=== PATIENT | male | born 1965 | race Caucasian/White ===

== ENCOUNTER → 2016-09-12 14:10 | Day surgery (SDC) | payer OTHER ==
[~2016-09-12 14:10] MED LIST: Bupivacaine 0.5% SDV PF* 30 ML VIAL ONE; Bupivacaine 0.5%* 50 ML VIAL ONE
[2016-09-12 17:28] VITALS: BP 170/87
--- NOTE | 2016-09-18 01:30 | OP ---
DATE OF OPERATION: 09/12/16 - [facility] DATE OF : 61 SURGEON: Jayant Salgado MD BOMBSIGHT SPECIALIST: DANAE Peguero ANESTHESIOLOGIST: None. ANESTHESIA: Local only via digital block with 0.25% Marcaine without epinephrine. PRE-OP DIAGNOSIS: Left middle finger tip mass. POST-OP DIAGNOSIS: Left middle finger tip mass. OPERATIVE PROCEDURE: Excision of left middle finger tip mass. ESTIMATED BLOOD LOSS: 2 mL. COMPLICATIONS: None. FINDINGS: Encapsulated white mass, left middle finger tip. DESCRIPTION OF PROCEDURE: Burton was seen in the preoperative holding area and the correct side, site, and procedure were marked. The digital block was performed. We then came back to the operating room where the arm was prepped and draped in the usual fashion. Formal time-out was performed. I exsanguinated the finger using a Tourni-Cot. I then made an oblique incision directly over the mass in line with his skin lines on the finger tip. Dissection was carried down and using the Mitchell blader, I was able to perform a marginal excision of the mass. It was white encapsulated mass. I did puncture the mass at the distal most aspect with the Mitchell blade and little bit of white lobular material came out. I continued this circumferentially around the mass and then amputated it proximally. Once the entire mass was removed, I irrigated the wound and closed the skin with some 5-0 nylon interrupted sutures. The finger was then dressed with some soft dressings and he was taken to the recovery room in stable condition. [id number]/[facility] #: [id number] MTDD
== END | disposition home or self-care (01) ==
LOC: OREAST 14:10
PROVIDERS: ATTEND Orthopaedic Surgery Hand Surgery
DX: L72.0 Epidermal cyst (principal); F17.210 Nicotine dependence, cigarettes, uncomplicated; I10 Essential (primary) hypertension; J43.9 Emphysema, unspecified
CPT/HCPCS: 88304

== ENCOUNTER → 2016-12-11 08:11 | Emergency (ER) | payer OTHER ==
[~2016-12-11 08:11] MED LIST changes: -Bupivacaine 0.5% SDV PF* 30 ML VIAL ONE; -Bupivacaine 0.5%* 50 ML VIAL ONE; +Iohexol 300* (CONTRAST) 10 ML SDV IV ONE; +Ketorolac INJ* 30 MG/ML 1 ML VIAL IV PUSH ONE; +fentaNYL* 50 MCG/ML 2 ML VIAL (100 MCG VIAL) IV SLOW PU ONE
[2016-12-11 09:44] LABS: Hematocrit 45 % (42-52); Hemoglobin 14.8 g/dl (14.0-18.0); Mean Corpuscular HGB Conc 33 g/dl (31-36); Mean Corpuscular Hemoglobin 31 pg (27-31); Mean Corpuscular Volume 92 fL (80-94); Mean Platelet Volume 9 um3 (7.4-10.4); Red Blood Count 4.84 10^6/ul (4.0-5.4); Red Cell Distribution Width 14 % (10.5-15); White Blood Count 7.9 10^3/ul (3.5-10.8)
[2016-12-11 09:55] LABS: Albumin 3.8 g/dL (3.2-5.2); BUN/Creatinine Ratio 27.5 (8-20); C Reactive Protein 5.9 mg/L (< 5.00); EGFR African American 154.9 (>60); EGFR Non-African American 120.4 (>60); Globulin 2.7 g/dL (2-4); Total Bilirubin 0.2 mg/dL (0.2-1.0); Total Protein 6.5 g/dL (6.4-8.9)
--- NOTE | 2016-12-11 10:56 | RAD ---
INDICATION: Left upper quadrant pain following injury COMPARISON: Low dose screening CT examination of the chest November 14, 2014; CT abdomen pelvis April 25, 2015 TECHNIQUE: Axial source images were obtained from the hemidiaphragms to the symphysis pubis following administration of intravenous contrast only 79 mL Omnipaque 300 was utilized. Coronal and sagittal reconstructed images were acquired. Lung bases: The cephalad most image shows an apparent 6 mm nodule in the right lower lobe periphery. This is not completely characterized and therefore CT imaging the chest is recommended as follow-up. Liver: The liver is normal in size. There are no masses. There is no ductal dilatation. Gallbladder: There are no calcified gallstones. There is no evidence of wall thickening or pericholecystic fluid. Spleen: The spleen is normal in size. There are no masses. Pancreas: There is no focal pancreatic mass or ductal dilatation. Adrenal glands: There is no evidence of adrenal mass. Kidneys: The kidneys are normal in size and position. There are prompt nephrograms and there is prompt excretion bilaterally. There are no renal parenchymal masses. There is no evidence of nephrolithiasis. Adenopathy: There is no evidence of adenopathy by size criteria. Fluid collections: There are no free or localized fluid collections. Vessels:There are no significant atherosclerotic changes involving the aorta. There is no focal aneurysm. The iliac vessels are normal in caliber. The IVC appears normal. GI tract: There are no acute CT bowel findings. There is no obstruction. The stomach and small bowel appear normal. The lower GI tract is remarkable for retained stool. The cecum, ileocecal valve, and terminal ileum appear normal. The appendix is visualized and appear normal. Pelvic organs: The prostate and seminal vesicles appear normal Bladder: There are no bladder masses. Abdominal and pelvic soft tissues: The extraperitoneal abdominal and pelvic soft tissues appear normal.. Osseous structures: There are no acute osseous findings. Other: None IMPRESSION: 1. No CT evidence of traumatic injury to the solid viscera. 2. Possible new 6 mm parenchymal nodule right lung base. Suggest nonemergent CT imaging follow-up. 3. Moderate retained stool.
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
[2016-12-11 12:05] VITALS: BP 116/77
== END | disposition home or self-care (01) ==
LOC: ED 08:11
DX: S22.32XA Fracture of one rib, left side, initial encounter for closed fracture (principal); W50.0XXA Accidental hit or strike by another person, initial encounter; Y93.9 Activity, unspecified; Y92.9 Unspecified place or not applicable
CPT/HCPCS: 36415; 74177; 80053; 82150; 85025; 86140; 96374; 96375; 99283; J1885; J3010; Q9967

== ENCOUNTER 2018-11-17 08:20 | Observation (INO) | payer OTHER ==
[~2018-11-17 08:20] MED LIST changes: +Buffered Lidocaine 1% SYRIN* 1 ML/SYRINGE INTRADERM ONE; -Iohexol 300* (CONTRAST) 10 ML SDV IV ONE; -Ketorolac INJ* 30 MG/ML 1 ML VIAL IV PUSH ONE; +Lactated Ringers 1000 ML Bag* 1,000 ML IV SCH; +Lidocaine 2% PF * 5 ML VIAL ONE; +Midazolam* 1 MG/ML 2 ML VIAL (2 MG) ONE; +Propofol* 10 MG/ML 20 ML BTL ONE; +Rocuronium* 10 MG/ML VIAL ONE; -fentaNYL* 50 MCG/ML 2 ML VIAL (100 MCG VIAL) IV SLOW PU ONE; +fentaNYL* 50 MCG/ML 2 ML VIAL (100 MCG VIAL) ONE
[2018-11-17] MEDS ORDERED: ceFAZolin 2 GM in NS PREMIX(*) 2 GM/100 ML BAG IVPB ONE (08:36)
[2018-11-17] MEDS ORDERED: Buffered Lidocaine 1% SYRIN* 1 ML/SYRINGE INTRADERM ONE (08:36)
[2018-11-17] MEDS ORDERED: Thrombin 5,000 UNITS* 1 APPLIC KIT - topical use - TOPICAL ONE (09:59)
[2018-11-17] MEDS ORDERED: Lidocain 1% EPI 1:100,000 * 30 ML MDV ONE (09:59)
[2018-11-17] MEDS ORDERED: Bacitracin INJECTION* 50,000 UNITS ONE (10:00)
[2018-11-17] MEDS ORDERED: Rocuronium* 10 MG/ML VIAL ONE (10:41)
[2018-11-17] MEDS ORDERED: oxyCODONE TAB* 5 MG TAB PO PRN (10:48)
[2018-11-17] MEDS ORDERED: Acetaminophen TAB* 325 MG PO PRN (10:48)
[2018-11-17] MEDS ORDERED: Naloxone* 0.4 MG/ML 1 ML VIAL IV PRN (10:48)
[2018-11-17] MEDS ORDERED: DiMENhydriNATE IV* 50 MG/ML VIAL IV PUSH PRN (10:48)
[2018-11-17] MEDS ORDERED: Sugammadex * 200 MG/2 ML VIAL IV PUSH ONE (11:36)
[2018-11-17] MEDS ORDERED: Ketorolac INJ* 30 MG/ML 1 ML VIAL ONE (11:36)
[2018-11-17] MEDS ORDERED: Metoclopramide IV* 5 MG/ML 2 ML VIAL ONE (11:36)
[2018-11-17] MEDS ORDERED: Ondansetron INJ* 2 MG/ML VIAL ONE (11:36)
[2018-11-17] MEDS ORDERED: HYDROcodone/ACETAMIN 5-325 MG* 1 TAB PO PRN (11:47)
[2018-11-17] MEDS ORDERED: Ondansetron INJ* 2 MG/ML VIAL IV PRN (11:47)
[2018-11-17] MEDS ORDERED: Benzocaine/Menthol LOZ* 1 LOZENGE PO PRN (11:53)
[2018-11-17] MEDS ORDERED: Albuterol HFA INHALER* 8 gm MDI INH PRN (11:56)
[2018-11-17] MEDS ORDERED: Lactated Ringers 1000 ML Bag* 1,000 ML IV SCH (12:00)
[2018-11-17] MEDS: HYDROmorphone INJ1* 1 MG/ML SYRINGE IV PRN ×5 (12:05→12:32)
[2018-11-17] MEDS ORDERED: HYDROmorphone INJ1* 1 MG/ML SYRINGE ONE (12:05)
[2018-11-17] MEDS ORDERED: HYDROcodone/ACETAMIN 5-325 MG* 1 TAB ONE (14:01)
[2018-11-17] MEDS: Nicotine PATCH 21 MG/24 HR* PATCH TRANSDERM SCH (14:07)
[2018-11-17] MEDS: amLODIPine TAB* 5 MG PO SCH (16:44)
[2018-11-17] MEDS: oxyCODONE/Acetamin 5/325 MG* TAB PO PRN ×2 (18:04→22:21)
[2018-11-17] MEDS ORDERED: Venlafaxine EXT RELEASE CAP* 75 MG PO SCH (21:00)
[2018-11-17] MEDS ORDERED: Nicotine Patch Removal NOTE PATCH OFF SCH (21:00)
[2018-11-17] MEDS: Docusate CAP* 100 MG PO SCH (22:21)
[2018-11-18] MEDS: oxyCODONE/Acetamin 5/325 MG* TAB PO PRN ×2 (03:18→07:53)
[2018-11-18 07:50] VITALS: BP 150/85
[2018-11-18] MEDS: Docusate CAP* 100 MG PO SCH (07:53)
[2018-11-18] MEDS: amLODIPine TAB* 5 MG PO SCH (07:53)
[2018-11-18] MEDS: Nicotine PATCH 21 MG/24 HR* PATCH TRANSDERM SCH (07:54)
--- NOTE | 2018-11-18 08:19 | PN ---
Progress Note - Progress Note Date of Service: 11/18/18 SOAP: Subjective: [S/p ACD F C6-7 POD #1 Feeling well this morning, eager to go home Mild RUE and shoulder discomfort Pain well controlled with PO medication Drain fell out last night Denies headache, nausea Eating and drinking well Ambulating independently] Objective: [ Vital Signs: Temp Pulse Resp BP Pulse Ox 97.7 F 58 18 150/85 98 11/18/18 07:34 11/18/18 07:34 11/18/18 07:53 11/18/18 07:34 11/18/18 07:34 General: Sitting up on bedside, NAD Neuro: Motor and sensory intact Incision: Intact, dressing in place, no swelling] Assessment: [Satisfactory post-op] Plan: [1. Discharge home today 2. Discharge instructions discussed]
--- NOTE | 2018-11-20 23:32 | OP ---
OPERATIVE REPORT: DATE OF OPERATION: 11/17/18 DATE OF : 61 PRIMARY SURGEON: Wai Rothman MD. QUILL MACHINE TENDER: DANAE Singleton. ANESTHESIA: General. PRE-OP DIAGNOSIS: Cervical spondylosis, C6-7. POST-OP DIAGNOSES: Cervical spondylosis, C6-7; herniated nucleus pulposus, C6-7. OPERATIVE PROCEDURES: Anterior cervical diskectomy at C6-7 with placement of biomechanical spacer an d anterior instrumentation. DESCRIPTION OF PROCEDURE: After satisfactory general anesthesia was obtained, the patient's head was positioned on a horseshoe headrest with his neck slightly extended. The anterior aspect of the cerv ical spine was then clipped, prepped, and draped in a sterile manner for anterior cervical exposure. A scalp x-ray was taken verifying the C6-7 level, after which an incision was begun at the midline e xtending to the right side for a distance of 3 cm. This incision was infiltrated with 1% Xylocaine w ith epinephrine, after which it was turned down sharply to the subcutaneous tissues. A superior and inferior based subcutaneous flap was then fashioned and the platysmal muscle was divided along the di rection of its fibers. Utilizing a combination of sharp and blunt dissection, a dissection plane was carried down to the anterior aspect of the spine. An additional x-ray was obtained verifying localiz ation of the C6-7 level, after which a large anterior osteophyte was removed with the Midas Loyd drill . The anterior two-thirds of disk material was then removed with the combination of the drill, angle d curettes, and pituitary rongeurs. The operating microscope was then brought into the field and the remainder of the procedure was done under microscopic visualization. Projecting back centrally was a subcapsular herniation of disk material. After removing this, there was also noted to be a promine nt spur projecting up the superior aspect of C7. This was decompressed with the Midas Loyd drill and [place] rongeurs. Ultimately, normal dura was encountered. A nerve hook would go out readily with b oth C7 nerve roots. It was felt that a satisfactory decompression had been achieved. The interspace was then prepared for receipt of an 8 mm PEEK cage, which was filled with bony matrix and slightly c ountersunk. A [employer] ZEVO plate was then selected to span from C6 to C7 and was secured into posi tion with self- drilling screws. A postconstruct x-ray was taken showing good graft and screw placem ent. The wound was then thoroughly irrigated, after which a drain was placed in the prevertebral spa ce and tunneled out towards the right side. The subcutaneous tissues were then reapproximated with 3 -0 Vicryl suture and Steri- Strips applied to the skin. The estimated blood loss was less than 50 cc and final sponge, padding and needle counts were correct. The patient was taken to the recovery ciro extubated and in stable condition. [id number]/[facility] #: [id number]
--- NOTE | 2018-12-04 21:40 | DS ---
DISCHARGE SUMMARY: DATE OF ADMISSION: 11/17/18 DATE OF DISCHARGE: 11/18/18 ATTENDING PHYSICIAN: Dr. Rothman.* (DICTATED BY DANAE CAREY) DISCHARGE DIAGNOSES: 1. Cervical disk disorder, C6-7. 2. Prior substance abuse. SPECIAL PROCEDURE: Anterior cervical diskectomy fusion with anterior instrumentation, C6-7. HOSPITAL COURSE: This 52-year-old male was seen in the office with persistent cervical radiculopathy, which had failed to improve over the previous 3 to 4 years with medication among other conservative treatments. He elected for surgical intervention. On the day of admission, he was taken to surgery where under anesthesia, an anterior cervical diskectomy and fusion with anterior instrumentation at C6-7 operation was carried out. Postoperatively, he was feeling well. The upper extremity symptoms were improved. He is ambulating independently and he was eating, drinking, voiding without difficulty. Pain is well controlled with oral pain medication. On the first postoperative day, the wound drain was discontinued and the patient was discharged home to the care of his . Patient was stable st time of discharge. DISCHARGE MEDICATIONS: 1. Cyclobenzaprine 10 mg one tablet by mouth up to 3 times daily as needed for muscle spasms. 2. Tramadol 50 mg oral every 6 hours as needed for pain. FOLLOWUP: He will be seen in the office in approximately 2 week for followup. DISCHARGE INSTRUCTIONS: Including wound care and activity level were discussed with the patient and information on this was provided. DANAE CAREY [id number]/[facility] #: [id number] [facility]ITAL[facility]ille
== END 2018-11-18 09:35 | disposition home or self-care (01) ==
LOC: OR 08:20 → SSU 11:47 → OR 11:47
PROVIDERS: ADMIT Neurological Surgery; ATTEND Neurological Surgery
DX: M50.123 Cervical disc disorder at C6-C7 level with radiculopathy (principal); Z79.899 Other long term (current) drug therapy; Z88.5 Allergy status to narcotic agent; F17.210 Nicotine dependence, cigarettes, uncomplicated
CPT/HCPCS: 72020; A9270-GY; C1713; C1776; J0690; J1170; J1885; J2250; J2405; J2704; J2765; J3010